=== PATIENT | male | born 1975 ===

== ENCOUNTER 2019-01-02 13:35 | Emergency (ER) | payer OTHER ==
[2019-01-02] MEDS ORDERED: Sodium Chloride 0.9% 1,000 ML IV ONE ×2 (13:54→14:56)
[2019-01-02] MEDS ORDERED: Aspirin 81 MG Tab.Chew PO ONE (13:59)
[2019-01-02] MEDS ORDERED: Morphine 2 MG/ML Syringe IVPUSH ONE ×2 (13:59→14:24)
--- NOTE | 2019-01-02 14:21 | EDM.PDOC ---
ED HPI GENERAL MEDICAL PROBLEM - General Chief Complaint: Back Pain or Injury Stated Complaint: HEADACHE,BACK PAIN Time Seen by Provider: 01/02/19 13:36 Source of Information: Reports: Patient History Limitations: Reports: No Limitations - History of Present Illness INITIAL COMMENTS - FREE TEXT/NARRATIVE: HISTORY AND PHYSICAL: History of present illness: Patient is a 43-year-old male presents to the ED today with concern of 10 out of 10 mid back pain that occurred 2 hours ago. Patient states that he was standing at work when he began to have 10 out of 10 mid back pain. Patient states he has also vomited about 8 times with abdominal pain. Patient states he also began sweating profusely since onset of symptoms. Patient has not taken anything for his symptoms. Patient states that today he has felt normal and per his usual self until onset of symptoms which occurred suddenly. Patient denies any health history. Patient denies fever, chills, chest pain, shortness of breath, or cough. Denies neck stiff ness, change in vision, syncope, or near syncope. Denies diarrhea, constipation, or dysuria. Has not noted any blood in urine or stool. Patient has been eating and drinking appropriately prior to onset of symptoms. Review of systems: As per history of present illness and below otherwise all systems reviewed and negative. Past medical history: As per history of present illness and as reviewed below otherwise noncontributory. Surgical history: As per history of present illness and as reviewed below otherwise noncontributory. Social history: See social history for further information Family history: As per history of present illness and as reviewed below otherwise noncontributory. Physical exam: Exam limited due to patient discomfort. General: Patient is alert, oriented, and in moderate distress. Patient is pale and diaphoretic and appears severely uncomfortable favoring his mid back,. HEENT: Atraumatic, normocephalic, pupils equal and reactive bilaterally, negative for conjunctival pallor or scleral icterus, mucous membranes moist, TMs normal bilaterally, throat clear, neck supple, nontender, trachea midline. No drooling or trismus noted. No meningeal signs. No hot potato voice noted. Lungs: Clear to auscultation, breath sounds equal bilaterally, chest nontender. Heart: S1S2, regular rate and rhythm without overt murmur Abdomen: Severe pain to palpation of the right side of abdomen with guarding. Soft, nondistended.Negative for masses or hepatosplenomegaly. Negative for costovertebral tenderness. Pelvis: Stable nontender. Genitourinary: Deferred. Rectal: Deferred. Skin: Pale, Intact, warm, dry. No lesions or rashes noted. Extremities: Atraumatic, negative for cords or calf pain. Neurovascular unremarkable. Neuro: Awake, alert, oriented. Cranial nerves II through XII unremarkable. Cerebellum unremarkable. Motor and sensory unremarkable throughout. Exam nonfocal. Notes: Dr. Herr directly involved in patient care. Patient appears much more comfortable following therapeutics today. Discussed other CT findings with patient and need for follow up with both urology and Gen. surgery and a primary care provider. Voices understanding and is agreeable to plan of care. Denies any further questions or concerns at this time. Diagnostics: CBC, CMP, UA, EKG, troponin, chest x-ray, chest CT, abdominal pelvic CT, type and screen, lactate, blood cultures 2, Abd US Prescriptions: Cipro, Zofran, Flomax, [place] No. 20 Therapeutics: NS, ASA, Morphine, Solumedrol, Flomax Impression: Ureterolithiasis, right Hydronephrosis Gallbladder thickening Plan: 1. Take medication as prescribed. You can also use Tylenol and ibuprofen as directed for pain and discomfort. 2. Follow-up with urology, general surgery, your primary care provider as discussed. Return to the ED as needed and as discussed. Definitive disposition and diagnosis as appropriate pending reevaluation and review of above. Right Back Pain Score (Numeric/FACES): 8 - Related Data Allergies Allergy/AdvReac Type Severity Reaction Status Date / Time No Known Allergies Allergy Verified 01/02/19 13:45 Home Meds: Home Meds . [No Known Home Meds] 01/02/19 [History] Past Medical History - Past Health History Medical/Surgical History: Denies Medical/Surgical History Social & Family History - Tobacco Use Smoking Status *Q: Current Every Day Smoker Years of Tobacco use: 20 Packs/Tins Daily: 1 - Recreational Drug Use Recreational Drug Use: No ED ROS GENERAL - Review of Systems Review Of Systems: ROS reveals no pertinent complaints other than HPI. ED EXAM, GENERAL - Physical Exam Exam: See Below (see dictation) Course - Vital Signs Last Recorded V/S: Last Vital Signs Temp 34.8 C L 01/02/19 13:41 Pulse 88 01/02/19 17:00 Resp 20 01/02/19 17:00 BP 169/115 H 01/02/19 17:00 Pulse Ox 88 L 01/02/19 17:00 - Orders/Labs/Meds Orders: Active Orders 24 hr Category Date Time Status Cardiac Monitoring [RC] . DIRECTED Care 01/02/19 13:54 Active EKG Documentation Completion [RC] STAT Care 01/02/19 13:54 Active CULTURE BLOOD [BC] Stat Lab 01/02/19 13:57 Received CULTURE BLOOD [BC] Stat Lab 01/02/19 14:18 Received Blood Culture x2 Reflex Set [OM.PC] Stat Oth 01/02/19 14:09 Ordered Labs: Laboratory Tests 01/02/19 01/02/19 01/02/19 Range/Units 13:50 13:50 13:57 WBC 12.17 H (4.0-11.0) K/uL RBC 5.19 (4.50-5.90) M/uL Hgb 15.6 (13.0-17.0) g/dL Hct 47.0 (38.0-50.0) % MCV 90.6 (80.0-98.0) fL MCH 30.1 (27.0-32.0) pg MCHC 33.2 (31.0-37.0) g/dL RDW Std Deviation 47.5 (28.0-62.0) fl RDW Coeff of Devon 14 (11.0-15.0) % Plt Count 190 (150-400) K/uL MPV 9.50 (7.40-12.00) fL Neut % (Auto) 46.5 L (48.0-80.0) % Lymph % (Auto) 45.8 H (16.0-40.0) % [place] % (Auto) 4.8 (0.0-15.0) % Eos % (Auto) 2.6 (0.0-7.0) % Baso % (Auto) 0.3 (0.0-1.5) % Neut # (Auto) 5.7 (1.4-5.7) K/uL Lymph # (Auto) 5.6 H (0.6-2.4) K/uL [place] # (Auto) 0.6 (0.0-0.8) K/uL Eos # (Auto) 0.3 (0.0-0.7) K/uL Baso # (Auto) 0.0 (0.0-0.1) K/uL Nucleated RBC % 0.0 /100WBC Nucleated RBCs # 0 K/uL Lactate (0.20-2.00) mmol/L Sodium 143 (136-148) mmol/L Potassium 3.6 (3.5-5.1) mmol/L Chloride 107 (98-107) mmol/L Carbon Dioxide 26.7 (21.0-32.0) mmol/L BUN 18 (7.0-18.0) mg/dL Creatinine 1.1 (0.8-1.3) mg/dL Est Cr Clr Drug Dosing 87.56 mL/min Estimated GFR (MDRD) > 60.0 ml/min Glucose 126 H (74-106) mg/dL Calcium 9.8 (8.5-10.1) mg/dL Total Bilirubin 0.3 (0.2-1.0) mg/dL AST 22 (15-37) IU/L ALT 43 (14-63) IU/L Alkaline Phosphatase 71 (46-116) U/L Troponin I < 0.050 (0.000-0.056) ng/mL Total Protein 8.0 (6.4-8.2) g/dL Albumin 4.1 (3.4-5.0) g/dL Globulin 3.9 (2.6-4.0) g/dL Albumin/Globulin Ratio 1.1 (0.9-1.6) Lipase 95 (73-393) U/L Urine Color Urine Appearance Urine pH (5.0-8.0) Ur Specific Bee (1.001-1.035) Urine Protein (NEGATIVE) mg/dL Urine Glucose (UA) (NEGATIVE) mg/dL Urine Ketones (NEGATIVE) mg/dL Urine Occult Blood (NEGATIVE) Urine Nitrite (NEGATIVE) Urine Bilirubin (NEGATIVE) Urine Urobilinogen (<2.0) EU/dL Ur Leukocyte Esterase (NEGATIVE) Urine RBC (0-2/HPF) Urine WBC (0-5/HPF) Ur Epithelial Cells (NONE-FEW) Urine Bacteria (NEGATIVE) Blood Type O POSITIVE Antibody Screen NEGATIVE 01/02/19 01/02/19 Range/Units 13:57 15:20 WBC (4.0-11.0) K/uL RBC (4.50-5.90) M/uL Hgb (13.0-17.0) g/dL Hct (38.0-50.0) % MCV (80.0-98.0) fL MCH (27.0-32.0) pg MCHC (31.0-37.0) g/dL RDW Std Deviation (28.0-62.0) fl RDW Coeff of Devon (11.0-15.0) % Plt Count (150-400) K/uL MPV (7.40-12.00) fL Neut % (Auto) (48.0-80.0) % Lymph % (Auto) (16.0-40.0) % [place] % (Auto) (0.0-15.0) % Eos % (Auto) (0.0-7.0) % Baso % (Auto) (0.0-1.5) % Neut # (Auto) (1.4-5.7) K/uL Lymph # (Auto) (0.6-2.4) K/uL [place] # (Auto) (0.0-0.8) K/uL Eos # (Auto) (0.0-0.7) K/uL Baso # (Auto) (0.0-0.1) K/uL Nucleated RBC % /100WBC Nucleated RBCs # K/uL Lactate 2.6 H (0.20-2.00) mmol/L Sodium (136-148) mmol/L Potassium (3.5-5.1) mmol/L Chloride (98-107) mmol/L Carbon Dioxide (21.0-32.0) mmol/L BUN (7.0-18.0) mg/dL Creatinine (0.8-1.3) mg/dL Est Cr Clr Drug Dosing mL/min Estimated GFR (MDRD) ml/min Glucose (74-106) mg/dL Calcium (8.5-10.1) mg/dL Total Bilirubin (0.2-1.0) mg/dL AST (15-37) IU/L ALT (14-63) IU/L Alkaline Phosphatase (46-116) U/L Troponin I (0.000-0.056) ng/mL Total Protein (6.4-8.2) g/dL Albumin (3.4-5.0) g/dL Globulin (2.6-4.0) g/dL Albumin/Globulin Ratio (0.9-1.6) Lipase (73-393) U/L Urine Color YELLOW Urine Appearance CLEAR Urine pH 7.0 (5.0-8.0) Ur Specific Bee 1.015 (1.001-1.035) Urine Protein NEGATIVE (NEGATIVE) mg/dL Urine Glucose (UA) NEGATIVE (NEGATIVE) mg/dL Urine Ketones NEGATIVE (NEGATIVE) mg/dL Urine Occult Blood LARGE H (NEGATIVE) Urine Nitrite NEGATIVE (NEGATIVE) Urine Bilirubin NEGATIVE (NEGATIVE) Urine Urobilinogen 0.2 (<2.0) EU/dL Ur Leukocyte Esterase NEGATIVE (NEGATIVE) Urine RBC 5-10 (0-2/HPF) Urine WBC 0-2 (0-5/HPF) Ur Epithelial Cells RARE (NONE-FEW) Urine Bacteria RARE (NEGATIVE) Blood Type Antibody Screen Meds: Medications Discontinued Medications Generic Name Dose Route Start Last Admin Trade Name Marvinq PRN Reason Stop Dose Admin Aspirin 324 mg 01/02/19 13:59 01/02/19 14:05 Aspirin PO 01/02/19 14:00 324 mg ONETIME ONE Administration Sodium Chloride 1,000 mls @ 999 mls/hr 01/02/19 13:54 01/02/19 14:05 Normal Saline IV 01/02/19 14:54 999 mls/hr BOLUS ONE Administration Sodium Chloride 1,000 mls @ 999 mls/hr 01/02/19 14:56 01/02/19 14:59 Normal Saline IV 01/02/19 15:56 999 mls/hr STAT ONE Administration Iopamidol 100 ml 01/02/19 14:33 01/02/19 14:42 Isovue Multipack-370 (76%) IVPUSH 01/02/19 14:34 100 ml ONETIME STA Administration Ketorolac Tromethamine 30 mg 01/02/19 14:49 01/02/19 14:51 Toradol IVPUSH 01/02/19 14:50 30 mg ONETIME ONE Administration Ketorolac Tromethamine Confirm 01/02/19 14:49 01/02/19 14:55 Toradol Administered 01/02/19 14:50 Not Given Dose 30 mg .ROUTE .STK-MED ONE Methylprednisolone Sodium Succinate 125 mg 01/02/19 16:01 01/02/19 16:22 Solu-Medrol IVPUSH 01/02/19 16:02 125 mg ONETIME ONE Administration Morphine Sulfate 2 mg 01/02/19 13:59 01/02/19 14:05 Morphine IVPUSH 01/02/19 14:00 2 mg ONETIME ONE Administration Morphine Sulfate 2 mg 01/02/19 14:24 01/02/19 14:26 Morphine IVPUSH 01/02/19 14:25 2 mg ONETIME ONE Administration Morphine Sulfate Confirm 01/02/19 14:25 01/02/19 14:54 Morphine Administered 01/02/19 14:26 Not Given Dose 2 mg .ROUTE .STK-MED ONE Tamsulosin HCl 0.4 mg 01/02/19 16:01 01/02/19 16:22 Flomax PO 01/02/19 16:02 0.4 mg ONETIME ONE Administration Departure - Departure Time of Disposition: 17:13 Disposition: Home, Self-Care 01 Clinical Impression: Ureterolithiasis, Thickening of wall of gallbladder Hydronephrosis Qualifiers: Hydronephrosis type: unspecified Qualified Code(s): N13.30 - Unspecified hydronephrosis - Discharge Information Referrals: PCP,None [Primary Care Provider] - Forms: ED Department Discharge Additional Instructions: The following information is given to patients seen in the emergency department who are being discharged to home. This information is to outline your options for follow-up care. We provide all patients seen in our emergency department with a follow-up referral. The need for follow-up, as well as the timing and circumstances, are variable depending upon the specifics of your emergency department visit. If you don't have a primary care physician on staff, we will provide you with a referral. We always advise you to contact your personal physician following an emergency department visit to inform them of the circumstance of the visit and for follow-up with them and/or the need for any referrals to a consulting specialist. The emergency department will also refer you to a specialist when appropriate. This referral assures that you have the opportunity for follow-up care with a specialist. All of these measure are taken in an effort to provide you with optimal care, which includes your follow-up. Under all circumstances we always encourage you to contact your private physician who remains a resource for coordinating your care. When calling for follow-up care, please make the office aware that this follow-up is from your recent emergency room visit. If for any reason you are refused follow-up, please contact the [facility] Emergency Department at and asked to speak to the emergency department charge nurse. [facility] Primary Care [address] [place] [id number] [facility] [address] [place] [id number] [facility] - Urology [address] [place] [address] [facility] - General Surgery Professional Building [address] [place] [address], [address] [place] [address] 1. Take medication as prescribed. You can also use Tylenol and ibuprofen as directed for pain and discomfort. 2. Follow-up with urology, general surgery, your primary care provider as discussed. There information has been provided above. Call to make appointment. 3. Return to the ED as needed and as discussed. - My Orders Last 24 Hours: My Active Orders 01/02/19 13:54 Cardiac Monitoring [RC] . DIRECTED EKG Documentation Completion [RC] STAT 01/02/19 13:57 CULTURE BLOOD [BC] Stat 01/02/19 14:09 Blood Culture x2 Reflex Set [OM.PC] Stat 01/02/19 14:18 CULTURE BLOOD [BC] Stat - Assessment/Plan Last 24 Hours: My Active Orders 01/02/19 13:54 Cardiac Monitoring [RC] . DIRECTED EKG Documentation Completion [RC] STAT 01/02/19 13:57 CULTURE BLOOD [BC] Stat 01/02/19 14:09 Blood Culture x2 Reflex Set [OM.PC] Stat 01/02/19 14:18 CULTURE BLOOD [BC] Stat
[2019-01-02] MEDS ORDERED: Morphine 2 MG/ML Syringe ONE (14:25)
[2019-01-02] MEDS ORDERED: Iopamidol 755 MG/ML 500 ML Multipack Bottle IVPUSH STA (14:33)
--- NOTE | 2019-01-02 14:40 | CR ---
INDICATION: Chest pain. TECHNIQUE: Portable AP chest. COMPARISON: None. FINDINGS: Normal cardiac, mediastinal and hilar contours. Normal pulmonary vasculature. Lungs are grossly clear. No pleural fluid or pneumothorax. No acute bony abnormality is identified. IMPRESSION: No signs of acute thoracic disease. Dictated by Keven James MD @ 01/02/2019 2:38:53 PM Dictated by: Keven James MD @ 01/02/2019 14:39:01 (Electronically Signed)
[2019-01-02 14:46] LABS: BLOOD UREA NITROGEN,BUN 18 mg/dL (7.0-18.0); CARBON DIOXIDE,CO2 26.7 mmol/L (21.0-32.0); CHLORIDE,CL 107 mmol/L (98-107); GLUCOSE RANDOM 126 mg/dL (74-106); LIPASE 95 U/L (73-393); POTASSIUM,K 3.6 mmol/L (3.5-5.1); SODIUM,NA 143 mmol/L (136-148)
[2019-01-02] MEDS ORDERED: Ketorolac 30 MG/ML SDV IVPUSH ONE (14:49)
[2019-01-02] MEDS ORDERED: Ketorolac 30 MG/ML SDV ONE (14:49)
--- NOTE | 2019-01-02 15:10 | CT ---
INDICATION: Back pain and diaphoresis. TECHNIQUE: CT abdomen and pelvis acquired with 100 cc Isovue 370 IV contrast. COMPARISON: None. FINDINGS: There is a 0.3 cm obstructing stone in the distal right ureter (series 301 image 118 and series 303 image 62) with associated upstream moderate hydroureteronephrosis. Mildly delayed right nephrogram and mild fat stranding about the right renal pelvis. Additional tiny nonobstructing renal calyceal stones bilaterally. Left renal cyst. No left hydronephrosis. The bladder is unremarkable. The liver, gallbladder, spleen, and pancreas are negative. 2.7 cm enhancing right adrenal nodule. The left adrenal gland is negative. No bowel dilation. Negative appendix. No intraperitoneal free air or fluid. Aortoiliac vascular calcifications. No lymphadenopathy. This exam was performed in conjunction with a CT of the chest which will be reported separately. IMPRESSION: 1. 0.3 cm obstructing stone in the distal right ureter with associated moderate right hydroureteronephrosis. 2. 2.7 cm right adrenal nodule most likely represents a benign adrenal adenoma. Please note that all CT scans at this facility use dose modulation, iterative reconstruction, and/or weight-based dosing when appropriate to reduce radiation dose to as low as reasonably achievable. Dictated by Cara Becker MD @ Jan 02 2019 2:53PM Signed by Dr. Cara Becker @ Jan 02 2019 3:10PM
--- NOTE | 2019-01-02 15:24 | CT ---
INDICATION: Pain, shortness of breath. COMPARISON: Chest radiograph 01/02/2019 TECHNIQUE: CT volumetric acquisition was performed of the thorax during intravenous infusion of 100 cc of Isovue-370 nonionic intravenous contrast. Please note that all CT scans at this facility use dose modulation, iterative reconstruction, and/or weight-based dosing when appropriate to reduce radiation dose to as low as reasonably achievable. FINDINGS: Conventional 3 vessel aortic arch. Normal caliber thoracic aorta main and central pulmonary arteries. No acute pulmonary embolism. No pericardial effusion. No thoracic lymphadenopathy. The thyroid gland is normal in appearance. No focal consolidation, pleural effusion, or pneumothorax. 0.5 cm noncalcified nodule along the right minor fissure (series 2 and 3 image 65) most likely represents a benign intrapleural lymph node. 0.3 cm pleural-based nodule in the lateral left lung base (image 22). Two 0.5 cm nodules in the posterior right lung base (images 97 and 100). Right basilar atelectasis. This exam was performed in conjunction with a CT of the abdomen and pelvis which will be reported separately. IMPRESSION: 1. No acute findings in the chest. 2. Few sub-6mm noncalcified pulmonary nodules in the lung bases are most likely benign. In a low risk patient, no further follow is required. Please note that all CT scans at this facility use dose modulation, iterative reconstruction, and/or weight-based dosing when appropriate to reduce radiation dose to as low as reasonably achievable. Dictated by Cara Becker MD @ Jan 02 2019 3:10PM Signed by Dr. Cara Becker @ Jan 02 2019 3:22PM
[2019-01-02] MEDS ORDERED: methylPREDNISolone Sodium Succinate 125 MG/2 ML SDV IVPUSH ONE (16:01)
[2019-01-02] MEDS ORDERED: Tamsulosin 0.4 MG Cap.ER PO ONE (16:01)
--- NOTE | 2019-01-02 16:50 | US ---
INDICATION: Right upper quadrant pain. Nausea and vomiting. COMPARISON: CT of the abdomen from today TECHNIQUE: Ultrasound examination of the right upper quadrant was performed. FINDINGS: The gallbladder wall is mildly thickened, measuring 4 millimeters. A positive sonographic Lujan`s sign is present, with pain over the gallbladder during ultrasound examination. No calculi are seen within the gallbladder, findings consistent with acalculous acute cholecystitis. The common bile duct cannot be identified. The pancreatic head and body were examined, and these are normal in appearance. The abdominal aorta and visualized portions of the inferior vena cava are normal in appearance. The distal abdominal aorta is partially opacified with bowel gas, but appears to be nondilated. The liver shows no sign of mass or contour abnormality, and there is no sign of ascites. There is mild right hydronephrosis, consistent with the appearance on CT. There is a small parapelvic cyst in the lower pole measuring 2.1 x 1.8 x 1.8 centimeters. IMPRESSION: Findings consistent with acute acalculous cholecystitis. Mild thickening of the gallbladder wall with a positive sonographic Lujan sign. Unable to identify the common bile duct because of bowel gas. Mild right hydronephrosis. Dictated by Ariel Ayon MD @ Jan 02 2019 4:45PM Signed by Dr. Ariel Ayon @ Jan 02 2019 4:49PM
== END 2019-01-02 17:50 | disposition home or self-care (01) ==
LOC: MW.ED 13:35
DX: N13.2 Hydronephrosis with renal and ureteral calculous obstruction (principal); F17.210 Nicotine dependence, cigarettes, uncomplicated; K82.8 Other specified diseases of gallbladder
CPT/HCPCS: 71045; 71260; 74177; 76705; 80053; 81001; 83605; 83690; 84484; 85025; 86850; 86900; 86901; 87040; 93005; 96361; 96374; 96375; 99284; A9270; J1885; J2270; J2930; J7040; Q9967

== ENCOUNTER 2019-01-04 20:54 | Emergency (ER) | payer OTHER ==
[2019-01-04] MEDS ORDERED: Ketorolac 30 MG/ML SDV IVPUSH ONE (21:22)
[2019-01-04] MEDS ORDERED: Tamsulosin 0.4 MG Cap.ER PO ONE (21:22)
[2019-01-04] MEDS ORDERED: Sodium Chloride 0.9% 1,000 ML IV ONE (21:22)
[2019-01-04] MEDS ORDERED: Ondansetron 4 MG/2 ML SDV IVPUSH ONE (21:22)
[2019-01-04] MEDS ORDERED: HYDROmorphone 1 MG/ML Syringe IVPUSH ONE (21:25)
--- NOTE | 2019-01-04 21:27 | EDM.PDOC ---
ED HPI GENERAL MEDICAL PROBLEM - General Chief Complaint: Flank Pain Stated Complaint: PT HAS KIDNEY STONES Time Seen by Provider: 01/04/19 21:18 - History of Present Illness INITIAL COMMENTS - FREE TEXT/NARRATIVE: HISTORY AND PHYSICAL: History of present illness: Patient is a 43-year-old male who was seen 2 days prior for right back pain diagnosed with ureterolithiasis he was given urology for referral and prescribe appropriate medication he returns with recurrence of the pain with associated nausea no vomiting no fever chills or other complaints Review of systems: As per history of present illness and below otherwise all systems reviewed and negative. Past medical history: As per history of present illness and as reviewed below otherwise noncontributory. Surgical history: As per history of present illness and as reviewed below otherwise noncontributory. Social history: No reported history of drug or alcohol abuse. Family history: As per history of present illness and as reviewed below otherwise noncontributory. Physical exam: HEENT: Atraumatic, normocephalic, pupils reactive, negative for conjunctival pallor or scleral icterus, mucous membranes moist, throat clear, neck supple, nontender, trachea midline. Lungs: Clear to auscultation, breath sounds equal bilaterally, chest nontender. Heart: S1S2, regular, negative for clicks, rubs, or JVD. Abdomen: Soft, nondistended, nontender. Negative for masses or hepatosplenomegaly. Right-sided costovertebral tenderness. Pelvis: Stable nontender. Genitourinary: Deferred. Rectal: Deferred. Extremities: Atraumatic, negative for cords or calf pain. Neurovascular unremarkable. Neuro: Awake, alert, oriented. Cranial nerves II through XII unremarkable. Cerebellum unremarkable. Motor and sensory unremarkable throughout. Exam nonfocal. Diagnostics: CBC CMP UA Therapeutics: Saline 1 L bolus Dilaudid 1 mg IV Toradol 30 mg IV Zofran 4 mg IV and Flomax 0.4 mg by mouth Impression: #1 history of right-sided ureterolithiasis #2 renal colic Definitive disposition and diagnosis as appropriate pending reevaluation and review of above. right flank Pain Score (Numeric/FACES): 10 - Related Data Allergies Allergy/AdvReac Type Severity Reaction Status Date / Time No Known Allergies Allergy Verified 01/04/19 21:14 Home Meds: Home Meds . [No Known Home Meds] 01/02/19 [History] Past Medical History - Past Health History Medical/Surgical History: Denies Medical/Surgical History Social & Family History - Tobacco Use Smoking Status *Q: Current Every Day Smoker Years of Tobacco use: 20 Packs/Tins Daily: 1 - Recreational Drug Use Recreational Drug Use: No ED ROS GENERAL - Review of Systems Review Of Systems: ROS reveals no pertinent complaints other than HPI. ED EXAM, GENERAL - Physical Exam Exam: See Below (dictation) Course - Vital Signs Last Recorded V/S: Last Vital Signs Temp 35.5 C 01/04/19 20:54 Pulse 86 01/04/19 20:54 Resp 20 01/04/19 20:54 BP 151/110 H 01/04/19 20:54 Pulse Ox 97 01/04/19 20:54 - Orders/Labs/Meds Labs: Laboratory Tests 01/04/19 01/04/19 01/04/19 Range/Units 21:37 21:37 22:05 WBC 14.44 H (4.0-11.0) K/uL RBC 4.79 (4.50-5.90) M/uL Hgb 14.7 (13.0-17.0) g/dL Hct 43.5 (38.0-50.0) % MCV 90.8 (80.0-98.0) fL MCH 30.7 (27.0-32.0) pg MCHC 33.8 (31.0-37.0) g/dL RDW Std Deviation 48.5 (28.0-62.0) fl RDW Coeff of [place] 15 (11.0-15.0) % Plt Count 171 (150-400) K/uL MPV 9.70 (7.40-12.00) fL Neut % (Auto) 78.7 (48.0-80.0) % Lymph % (Auto) 14.1 L (16.0-40.0) % Bureau % (Auto) 6.0 (0.0-15.0) % Eos % (Auto) 1.0 (0.0-7.0) % Baso % (Auto) 0.2 (0.0-1.5) % Neut # (Auto) 11.4 H (1.4-5.7) K/uL Lymph # (Auto) 2.0 (0.6-2.4) K/uL Bureau # (Auto) 0.9 H (0.0-0.8) K/uL Eos # (Auto) 0.1 (0.0-0.7) K/uL Baso # (Auto) 0.0 (0.0-0.1) K/uL Nucleated RBC % 0.0 /100WBC Nucleated RBCs # 0 K/uL Sodium 143 (136-148) mmol/L Potassium 4.0 (3.5-5.1) mmol/L Chloride 104 (98-107) mmol/L Carbon Dioxide 26.7 (21.0-32.0) mmol/L BUN 25 H (7.0-18.0) mg/dL Creatinine 1.1 (0.8-1.3) mg/dL Est Cr Clr Drug Dosing 87.56 mL/min Estimated GFR (MDRD) > 60.0 ml/min Glucose 129 H (74-106) mg/dL Calcium 9.8 (8.5-10.1) mg/dL Total Bilirubin 0.2 (0.2-1.0) mg/dL AST 15 (15-37) IU/L ALT 36 (14-63) IU/L Alkaline Phosphatase 64 (46-116) U/L Total Protein 7.7 (6.4-8.2) g/dL Albumin 4.1 (3.4-5.0) g/dL Globulin 3.6 (2.6-4.0) g/dL Albumin/Globulin Ratio 1.1 (0.9-1.6) Urine Color YELLOW Urine Appearance CLEAR Urine pH 6.0 (5.0-8.0) Ur Specific [place] >= 1.030 (1.001-1.035) Urine Protein NEGATIVE (NEGATIVE) mg/dL Urine Glucose (UA) NEGATIVE (NEGATIVE) mg/dL Urine Ketones TRACE H (NEGATIVE) mg/dL Urine Occult Blood LARGE H (NEGATIVE) Urine Nitrite NEGATIVE (NEGATIVE) Urine Bilirubin NEGATIVE (NEGATIVE) Urine Urobilinogen 0.2 (<2.0) EU/dL Ur Leukocyte Esterase NEGATIVE (NEGATIVE) Urine RBC 8-10 (0-2/HPF) Urine WBC 0-1 (0-5/HPF) Ur Epithelial Cells RARE (NONE-FEW) Urine Bacteria RARE (NEGATIVE) Meds: Medications Discontinued Medications Generic Name Dose Route Start Last Admin Trade Name Freq PRN Reason Stop Dose Admin Hydromorphone HCl 1 mg 01/04/19 21:25 01/04/19 21:42 Dilaudid IVPUSH 01/04/19 21:26 1 mg ONETIME ONE Administration Sodium Chloride 1,000 mls @ 999 mls/hr 01/04/19 21:22 01/04/19 21:38 Normal Saline IV 01/04/19 22:22 999 mls/hr STAT ONE Administration Ketorolac Tromethamine 30 mg 01/04/19 21:22 01/04/19 21:41 Toradol IVPUSH 01/04/19 21:23 30 mg ONETIME ONE Administration Ondansetron HCl 4 mg 01/04/19 21:22 01/04/19 21:40 Zofran IVPUSH 01/04/19 21:23 4 mg ONETIME ONE Administration Tamsulosin HCl 0.4 mg 01/04/19 21:22 01/04/19 21:39 Flomax PO 01/04/19 21:23 0.4 mg ONETIME ONE Administration Departure - Departure Time of Disposition: 22:25 Disposition: Home, Self-Care 01 Condition: Good Clinical Impression: Ureteric colic, Ureterolithiasis - Discharge Information Referrals: PCP,None [Primary Care Provider] - Forms: ED Department Discharge Additional Instructions: The following information is given to patients seen in the emergency department who are being discharged to home. This information is to outline your options for follow-up care. We provide all patients seen in our emergency department with a follow-up referral. The need for follow-up, as well as the timing and circumstances, are variable depending upon the specifics of your emergency department visit. If you don't have a primary care physician on staff, we will provide you with a referral. We always advise you to contact your personal physician following an emergency department visit to inform them of the circumstance of the visit and for follow-up with them and/or the need for any referrals to a consulting specialist. The emergency department will also refer you to a specialist when appropriate. This referral assures that you have the opportunity for followup care with a specialist. All of these measure are taken in an effort to provide you with optimal care, which includes your followup. Under all circumstances we always encourage you to contact your private physician who remains a resource for coordinating your care. When calling for followup care, please make the office aware that this follow-up is from your recent emergency room visit. If for any reason you are refused follow-up, please contact the [facility] emergency department at and asked to speak to the emergency department charge nurse. [facility] U[facility] [address] [place] [id number] Medications as prescribed on her prior visit call to schedule appointment with urology above return as needed as discussed
[2019-01-04 22:05] LABS: BLOOD UREA NITROGEN,BUN 25 mg/dL (7.0-18.0); CARBON DIOXIDE,CO2 26.7 mmol/L (21.0-32.0); CHLORIDE,CL 104 mmol/L (98-107); GLUCOSE RANDOM 129 mg/dL (74-106); SODIUM,NA 143 mmol/L (136-148)
== END 2019-01-04 23:10 | disposition home or self-care (01) ==
LOC: MW.ED 20:54
DX: N20.1 Calculus of ureter (principal); F17.210 Nicotine dependence, cigarettes, uncomplicated
CPT/HCPCS: 36415; 80053; 81001; 85025; 96361; 96374; 96375; 99284; A9270; J1170; J1885; J2405; J7040; 99283